=== PATIENT | male | born 1960 | race Caucasian/White ===

== ENCOUNTER → 2016-11-22 00:22 | Emergency (ER) | payer SELFPAY ==
[2016-11-22 00:27] VITALS: BP 150/86
--- NOTE | 2016-11-22 00:55 | ED ---
Jennifer Hughes Salem, kendellibed for Rex Alex MD on 11/22/16 at 0043 . Medical Screening - HPI Summary HPI Summary: Patient is a 55 y/o M brought in for legal blood drawn. - History of Current Complaint Chief Complaint: EDGeneral Stated Complaint: LEGAL BLOOD DRAW Time Seen by Provider: 11/22/16 00:29 PMH/Surg Hx/FS Hx/Imm Hx Endocrine/Hematology History: Denies: Hx Diabetes, Hx Thyroid Disease Cardiovascular History: Denies: Hx Hypercholesterolemia, Hx Hypertension, Hx Peripheral Vascular Disease Musculoskeletal History: Denies: Hx Arthritis, Hx Osteoporosis Sensory History: Denies: Hx Cataracts, Hx Contacts or Glasses, Hx Glaucoma Opthamlomology History: Denies: Hx Cataracts, Hx Contacts or Glasses, Hx Glaucoma Neurological History: Denies: Hx Headaches, Hx Seizures, Hx Transient Ischemic Attacks (TIA) Psychiatric History: Denies: Hx Anxiety, Hx Depression Infectious Disease History: Denies: Traveled Outside the [place] in Last 30 Days - Family History Known Family History: Positive: Other - Negative. - Social History Hx Substance Use: No Substance Use Type: Reports: None Hx Tobacco Use: No Review of Systems All Other Systems Reviewed And Are Negative: Yes Physical Exam Triage Information Reviewed: Yes Vital Signs On Initial Exam: Initial Vitals Temp Pulse Resp BP Pulse Ox 97.2 F 110 16 150/86 94 11/22/16 00:25 11/22/16 00:25 11/22/16 00:25 11/22/16 00:25 11/22/16 00:25 Vital Signs Reviewed: Yes Appearance: Positive: Well-Appearing Skin: Positive: Warm Head/Face: Positive: Normal Head/Face Inspection ENT: Positive: Hearing grossly normal Respiratory/Lung Sounds: Positive: Breath Sounds Present Neurological: Positive: Normal Gait Diagnostics - Vital Signs Vital Signs Temp Pulse Resp BP Pulse Ox 11/22/16 00:25 97.2 F 110 16 150/86 94 - Laboratory Lab Statement: Any lab studies that have been ordered have been reviewed, and results considered in the medical decision making process. Course/Dx - Diagnoses Provider Diagnoses: Blood alcohol request Discharge - Discharge Plan Condition: Stable Disposition: LAW ENFORCEMENT/COURT Referrals: [facility] [place] [facility] [Outside] The documentation as recorded by the Jennifer blanco [place] accurately reflects the service I personally performed and the decisions made by Abi schwarz David MD.
== END ==
LOC: ED 00:22
DX: Z02.83 Encounter for blood-alcohol and blood-drug test (principal)
CPT/HCPCS: 99282

== ENCOUNTER 2018-05-21 00:23 | Emergency (ER) | payer SELFPAY ==
[2018-05-21 00:27] VITALS: BP 125/81
== END 2018-05-21 00:40 | disposition left against medical advice (07) ==
LOC: ED 00:23
DX: Z04.89 Encounter for examination and observation for other specified reasons (principal); Z53.21 Procedure and treatment not carried out due to patient leaving prior to being seen by health care provider